=== PATIENT | female | born 1940 | race Caucasian/White ===

== ENCOUNTER → 2018-02-01 10:14 | Outpatient (CLI) | payer MEDICARE, OTHER, SELFPAY ==
--- NOTE | 2018-02-01 | IMM_PTH ---
PATIENT: WOODROW JULIAN LOC: [facility] U#:[id number] AGE/SX: 85/F ROOM: RE02/01/[address]: Dr. Brandt Salomon MD : 1940 BED: DIS: SPEC #: [id number] RECD: 02/02/18 11:37 STATUS: MADISYN REQ #: [id number] EVE: 02/01/18 00:[address]: Brandt Salomon DEPT: IMMUNOHISTOCHEMISTRY RECD BY: Natalya Gamboa ENTERED: 02/02/18 11:38 SP TYPE: IMMUNO OTHR DR: Dr. Derrick Skelton DO Tissues: Left breast, NOS Procedures: Calponin-1(initial) CALPONIN-1 (add) P40 (add) PHYSICIAN & INSTITUTION [place] [id number] SPECIMEN INFORMATION: Tissue Source: Left breast Clinical Info: Left posterior inferior calcifications Specimen Number: [id number] #1 & 3 CPT code: 69669, 83696 x3 METHODOLOGY: Deparaffinized sections of prefer/formalin-fixed tissue or PAP/DQ stained slides are incubated with monoclonal/polyclonal antibodies/oligonucleotide probes. Localization is made via biotin free immunoperoxidase method. Appropriate controls are performed and reacted as expected. Results on target cell population are indicated in the following table: RESULTS: ANTIBODY / CLONE RESULT Block 1 Calponin-1 (JX339A) positive P40 (BC28) positive Block 3 Calponin-1 (YS438P) positive P40 (BC28) positive These tests were developed and their performance characteristics determined by [facility]. They may not have been cleared or approved by the [place]. Food and Drug Administration. The FDA has determined that such clearance or approval is not necessary. INTERPRETATION: Left breast, stereotactic needle core biopsy: No evidence of carcinoma. AM:fatou 02/03/18
--- NOTE | 2018-02-01 10:50 | BRBX_PTH ---
PATIENT: WOODROW JULIAN LOC: [facility] U#:[id number] AGE/SX: 85/F ROOM: RE02/01/[address]: Dr. Brandt Salomon MD : 1940 BED: DIS: SPEC #: [id number] RECD: 02/01/18 11:38 STATUS: MADISYN JANI #: [id number] EVE: 02/01/18 10:[address]: Brandt Salomon DEPT: SURGICAL PATHOLOGY RECD BY: Brandt Valdez ENTERED: 02/01/18 12:45 SP TYPE: BREAST BX OTHR DR: Dr. 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 Hyalinized nodule with degenerative change and associated microcalcifications. Adenosis and fibrocystic change. Benign microcalcifications. AM:fatou 02/03/18 COMMENT Immunohistochemistry ([id number]) supports the above diagnosis. Case has been reviewed in consultation with Dr. Fan who concurs with the above diagnosis. IDC:FLEX MICROSCOPIC DESCRIPTION Slides are reviewed. GROSS DESCRIPTION Received in fixative is one container labeled with the patient's name and designated left breast. The specimen consists of multiple elongated fragments of lopez-yellow fibroadipose tissue that in aggregate measure 7.5 x 3 x 0.3 cm. The entire specimen is submitted in three cassettes. / FLEX:fatou 02/01/18 TC:? CPT: 97056
--- NOTE | 2018-02-01 14:39 | HP.PCM_ITS ---
History and Physical Date of Admission: 02/01/18 HISTORY AND PHYSICAL - BREAST COMPLAINT ? Makayla Sandoval 1940 ? ? REFERRING PHYSICIAN: ~Derrick Marshall, DO ? CHIEF COMPLAINT: ~~Left breast microcalcifications ? HPI: The patient is a 77 year old female with a complaint of an abnormal mammogram. ~The patient had a mammogram with ultrasound on January 15, 2018~ which demonstrated just inferior and lateral to the nipple is a grouping of coarse microcalcifications which have increased in number, along with approximately a 1 cm soft tissue density. ~Stereotactic biopsy is recommended.~~ The patient has a history of excisional left breast biopsy in the distant past that was benign, but otherwise no breast masses. ~She does~~perform a self breast exam routinely. ~She notes no skin changes. ~She denies nipple discharge. ~She notes no axillary masses. ~She notes no family history of breast problems. ~She notes no significant breast trauma or breast difficulties in the past. ? ? ? The patient is being seen by me today at the request of Dr. Derrick Reza for my opinion and advice regarding abnormal left breast imaging. ? PAST?MEDICAL?HISTORY PAST MEDICAL HISTORY Diagnosis Date ? Allergic rhinitis ? ? Asthma ? ? DDD (degenerative disc disease), lumbar ? ? Diverticular disease ? ? Glaucoma ? ? HNP (herniated nucleus pulposus) ? ? HTN (hypertension) ? ? Lymphoma (HCC) ? ? Osteoporosis ? ? Renal stone ? ? ? PAST?SURGICAL?HISTORY PAST SURGICAL HISTORY Procedure Laterality Date ? CHOLECYSTECTOMY HX ? 1985 ? COLONOSCOPY ? 2013 ? HYSTERECTOMY HX ? 1974 ? PAST SURGICAL HISTORY OF Right 1991 ? removal of acoustic neuroma ? ? CURRENT?MEDICATIONS ? Current Outpatient Prescriptions: aspirin, enteric coated (ASPIRIN, ENTERIC COATED) 81 mg EC tablet Take 81 mg by mouth once daily. Disp: Rfl: timolol maleate (TIMOPTIC) 0.5 % ophthalmic solution ? Disp: Rfl: NIFEdipine ER (PROCARDIA XL) 90 mg 24 hr tablet ? Disp: Rfl: mometasone (ELOCON) 0.1 % cream ? Disp: Rfl: metoprolol tartrate, short acting, (LOPRESSOR) 25 mg tablet ? Disp: Rfl: lisinopril (ZESTRIL, PRINIVIL) 20 mg tablet ? Disp: Rfl: latanoprost (XALATAN) 0.005 % ophthalmic solution ? Disp: Rfl: hydroCHLOROthiazide (HYDRODIURIL, ESIDRIX) 25 mg tablet ? Disp: Rfl: COMBIGAN 0.2-0.5 % drop ? Disp: Rfl: QVAR 40 mcg/actuation inhaler ? Disp: Rfl: dicyclomine (BENTYL) 10 mg capsule ? Disp: Rfl: CALCIUM CARBONATE/VITAMIN D3 (CALCIUM 500 + D, D3, ORAL) Take by mouth. Disp: Rfl: ANTIOX #8/OM3/DHA/EPA/LUT/ZEAX (PRESERVISION AREDS 2, OMEGA-3, ORAL) Take by mouth. Disp: Rfl: sulfur-sod sul-sod thiosulf-FA (SULFZIX, FOLIC ACID,) 400 mg- 500 mcg cap Take by mouth. Disp: Rfl: ? No current facility-administered medications for this visit. ? ALLERGIES: Bactrim [Sulfamethoxazole-Trimethoprim]; Cefdinir; Niacin; Sulfa ( Sulfonamide Antibiotics) ? PERSONAL HISTORY: SOCIAL?HISTORY Social History ~~Marital status: ~~~~~~~~~~~~Spouse name: ~~~~~~~~~~~~~~~~~~ ~~Years of education: ~~~~~~~~~~~~~~~~Number of children: ~~~~~~~~~~ ? Social History Main Topics ? FAMILY HISTORY: FAMILY?HISTORY No family history on file. ? REVIEW OF SYMPTOMS: ~~The review of systems data was entered by the nurse and reviewed by me ? There are no exam notes on file for this visit. ? ?? PHYSICAL EXAMINATION: ? General: ~The patient is 77 year old female, well nourished, well hydrated in no acute distress. ~The patient is oriented to time, place, and person. ? VITALS: There were no vitals taken for this visit.~There is no height or weight on file to calculate BMI.~ ? HEENT: ~Normal cephalic, ataumatic, pupils are equally round, sclera are anicteric, mucous membranes are moist, oropharynx is clear. ~Neck has no masses , asymmetry or lymphadenopathy. ~Thyroid is unremarkable. ? Respiratory: ~Clear to auscultation and percussion. ~Normal respiratory excursion and pattern. ? Cardiac: ~Examination is regular rate and rhythm. ? Abdominal exam: ~Soft, nontender, ~with no palpable masses. ~No hepatosplenomegaly. ~No palpable hernias. ? Rectal exam: ~exam deferred Extremities: ~no clubbing, cyanosis or edema. ~No adenopathy. ? Breast: ~Visual inspection reveals no retractions, nipple inversion, or skin changes. ~Palpation of the right breast reveals no dominant or suspicious masses. ~Palpation of the left breast reveals no dominant or suspicious masses. ~Axillary exam demonstrates no suspicious masses in either the left or right axilla. ~There is no nipple discharge expressed from either the left or right breast. ? LABORATORY VALUES: As Noted ? RADIOLOGIC STUDIES: ~As Noted ? Assessment ~ IMPRESSION: microcalcifications, left breast ? PLAN: ~I plan to perform a stereotactic biopsy of the left breast. ~The planned surgical procedure was discussed extensively with the patient. ~The risks, benefits, anticipated outcomes and possible complications were mentioned. ~My staff has also explained the procedure in understandable terms and the patient was given the option to take printed material concerning the planned procedure. ~The patient had the opportunity to ask questions concerning the planned procedure. ~The patient freely consents to the planned procedure. ~~~ ? Diagnoses: (R92.8) Abnormal finding on breast imaging ~(primary encounter diagnosis) ? A letter was sent to Dr. Derrick Skelton~indicating the above finding for this patient. ? ?? Return to Clinic: The patient is instructed to follow-up with me after the testing has been completed. ? Brandt Salomon MD
--- NOTE | 2018-02-01 14:56 | OP.PCM_ITS ---
Report of Operation Date of Procedure: 02/01/18 Pre-Operative Diagnosis: left breast microcalcifications Post-Operative Diagnosis: left breast microcalcifications-successful biopsy Surgery/Procedure Performed:: left stereotactic breast biopsy, specimen radiograph, gel marker clip placement network/telecom engineer: None Type of Anesthesia:: Local Specimen's removed: left breast Description of Procedure: The patient was brought to the stereotactic suite and informed of the plan course of events. The left breast was positioned in the true medial to lateral position on the Mather stereotactic table. Mammographic image demonstrated the area of abnormality to be located in the center of the radiograph. Stereotactic images were then obtained which demonstrated good positioning of the abnormality for biopsy with good stroke karey parameters. The breast was cleaned with Betadine area did one percent lidocaine was used to anesthetize the skin and a small stab incision made. An 8-gauge mammotome needle was placed into the pre-fire position. Stereotactic images demonstrated good positioning around the planned biopsy site. Local anesthetic injected deeply in the breast. The needle was deployed. Post deployment images demonstrated good positioning of the planned biopsy site. Multiple vacuum-assisted samples were obtained and [id number] fashion. Specimen radiograph demonstrated micro-calcifications in the sample. A gel marker clip was deployed. Post biopsy images demonstrated good position of the clip relative the biopsy cavity. The breast was removed from compression. Steri-Strips and a dressing applied. Post procedure mammogram images were obtained. - Admit VTE Documentation VTE Present on Admission: No
== END ==
PROVIDERS: Family Provider Family Medicine; PCP Family Medicine; Visit Provider Surgery
DX: N60.92 Unspecified benign mammary dysplasia of left breast (principal); N63.0 Unspecified lump in unspecified breast; N60.22 Fibroadenosis of left breast; N60.12 Diffuse cystic mastopathy of left breast; R92.0 Mammographic microcalcification found on diagnostic imaging of breast
CPT/HCPCS: 19081; 88305; 88341; 88342; J7050; A4648